=== PATIENT | male | born 1935 | race Caucasian/White ===

== ENCOUNTER 2017-03-23 06:40 | Day surgery (SDC) | payer MEDICARE, BC ==
[~2017-03-23 06:40] MED LIST: ACETAZOLAMIDE 250 MG PO ONE
[2017-03-23] MEDS: PROPARACAINE HCL 0.5% OPHTHALMIC SOL ONE ×3 (06:59→08:12)
[2017-03-23] MEDS: CYCLOPENTOLATE 1% SOL ONE ×2 (06:59→07:17)
[2017-03-23] MEDS: KETOROLAC 0.5% OPTH 60 DROP SOL ONE ×2 (07:00→07:18)
[2017-03-23] MEDS: PHENYLEPHRINE HCL 10% OPHTHAL SOL LEFTEYE ONE ×2 (07:00→07:18)
[2017-03-23 07:05] VITALS: RESP 16; O2SAT 95
[2017-03-23] MEDS ORDERED: MIDAZOLAM 2 MG/2 ML SOL ONE (07:42)
[2017-03-23] MEDS ORDERED: FENTANYL 100MCG/2ML SOL ONE (07:42)
[2017-03-23] MEDS ORDERED: LIDOCAINE HCL 1% MPF SOL ONE (08:06)
[2017-03-23] MEDS ORDERED: BSS 500 ML 500 ML IR ONE (08:06)
[2017-03-23] MEDS ORDERED: POVIDONE IODINE 5% SOL ONE (08:06)
[2017-03-23 08:43] VITALS: BP 127/63; PULSE 56; TEMP 97.1
[2017-03-23] MEDS ORDERED: ACETAZOLAMIDE 250 MG PO ONE (14:24)
== END 2017-03-23 09:08 | disposition home or self-care (01) | DRG 125 ==
LOC: SURG 06:40
PROVIDERS: ATTEND Ophthalmology
DX: H25.9 Unspecified age-related cataract (principal)
CPT/HCPCS: J2250; J3010; J2001

== ENCOUNTER 2019-02-20 13:15 | Emergency (ER) | payer MEDICARE, BC | END 2019-02-20 17:47 | disposition home or self-care (01) | LOC: ED 13:15 ==